=== PATIENT | female | born 1945 | race Two or more races ===

== ENCOUNTER 2024-07-08 05:35 | Day surgery (SDC) | payer OTHER ==
[2024-07-05 09:28] LABS: HEMATOCRIT 36.3 % (36.0-45.00); HEMOGLOBIN 12.3 g/dL (12.0-15.00); MEAN CELL VOLUME 85.4 fL (80.00-100.00); PLATELET COUNT 219 K/uL (150-450); RED BLOOD COUNT 4.25 M/uL (4.00-6.00); RED CELL DISTRIBUTION WIDTH 13.1 % (11.5-14.5)
[2024-07-05 09:55] VITALS: BP 158/68
[2024-07-05 09:57] LABS: URINE APPEARANCE Clear; URINE BILIRRUBIN Negative (NEGATIVE); URINE BLOOD Trace; URINE COLOR Yellow; URINE GLUCOSE Negative (NEGATIVE); URINE KETONE Negative (NEGATIVE); URINE LEUKOCYTE Moderate; URINE NITRATE Negative; URINE PROTEIN Negative (NEGATIVE); URINE UROBILINOGEN 0.2 E.U./dl
[2024-07-05 09:59] LABS: URINE EPITHELIAL CELLS 10.5 uL (0.0-38.8); URINE RBC 11.1 uL (0.0-20.8); URINE WBC 14.2 uL (0.0-23.2)
[2024-07-05 10:33] LABS: INR 1.02; PARTIAL THROMBOPLASTIN TIME 28.2 SECONDS (22.0-34.0); PROTHROMBIN TIME 11.1 SECONDS (9.0-11.5)
[2024-07-05 10:38] LABS: ALBUMIN 4.2 gm/dL (3.4-5.0); BILIRUBIN TOTAL 0.43 mg/dL (0.3-1.2); CALCIUM 9.4 mg/dL (8.5-10.1); CREATININE SERUM 0.68 mg/dL (0.55-1.02); GFR 83.25; GLOBULINA 3.5 G/DL (2.4-3.5); POTASSIUM 4.12 mEq/L (3.5-5.1); TOTAL PROTEIN 7.7 gm/dL (6.4-8.2)
[2024-07-05 10:40] LABS: URINE CAST 0.15 uL (0.0-1.40)
[~2024-07-08] VITALS: Ht 160 cm; Wt 49.9 kg
[~2024-07-08 05:35] MED LIST: ATARAX25 MG PO; CRESTOR40 MG PO; IRBESARTAN75 MG PO; TOPROL XL25 M1 PO
[2024-07-08] MEDS ORDERED: MORPHINE SULFATE 4 MG/ML VIAL IV ONE ×2 (12:15)
[2024-07-08] MEDS ORDERED: ONDANSETRON HCL 2 MG/ML VIAL IV ONE (12:45)
== END 2024-07-08 15:55 | disposition home or self-care (01) ==
LOC: CIR.AMB 05:35
PROVIDERS: ATTEND Obstetrics & Gynecology
DX: N84.0 Polyp of corpus uteri (principal); N95.0 Postmenopausal bleeding; I10 Essential (primary) hypertension; Z88.6 Allergy status to analgesic agent; Z88.1 Allergy status to other antibiotic agents; Z88.0 Allergy status to penicillin; M19.90 Unspecified osteoarthritis, unspecified site